=== PATIENT | female | born 2000 | race Hispanic/Latino ===

== ENCOUNTER 2023-10-23 23:03 | Emergency (ER) | payer SELFPAY ==
--- NOTE | ~2023-10-23 | US_ITS ---
Pelvic ultrasound. Clinical History: First trimester , vaginal bleeding Technique: Realtime transabdominal and transvaginal scanning of the pelvis was performed. Color flow Doppler and Doppler spectral analysis were performed. Findings: The uterus is anteverted. The endometrial stripe is thickened and heterogeneous, without i ntrauterine gestational sac. The right ovary measures 2.0 x 1.4 x 1.6 cm. No significant right ovarian or adnexal mass is seen. The left ovary measures 3.3 x 1.4 x 2.5 cm. No significant left ovarian or adnexal mass is seen. There is no evidence of free fluid in the cul de sac. Impression: Thickened, heterogeneous endometrial stripe suggests spontaneous . Technical limitations in i maging limit evaluation for retained products of conception. No intrauterine gestational sac. Early n ormal or nonvisualized ectopic are felt to be much less likely, though not defini tively excluded. Correlate clinically. Continued follow-up with serial beta hCG recommended. Consider follow-up ultrasound as indicated. Reviewed, dictated and finalized at location . Impression: Thickened, heterogeneous endometrial stripe suggests spontaneous . Tech nical limitations in imaging limit evaluation for retained products of concepti on. No intrauterine gestational sac. Early normal or nonvisualized ec topic are felt to be much less likely, though not definitively exclud ed. Correlate clinically. Continued follow-up with serial beta hCG recommended. Consider follow-up ultrasound as indicated.
[2023-10-23 23:13] VITALS: BP 152/81; PULSE 96; RESP 16; TEMP 37.2; O2SAT 99
--- NOTE | 2023-10-23 23:29 | ED.FEMALEGU ---
HPI - Female Genitourinary General Chief complaint: Vaginal Bleeding <Maliha Torres PA-C - Last Filed: 10/24/23 02:00> Stated complaint: spotting&cramping, 2 months preg. roughly <Maliha Torres PA-C - Last Filed: 10/24/23 02:00> Time Seen by Provider: 10/23/23 23:20 <Maliha Torres PA-C - Last Filed: 10/24/23 02:00> History of Present Illness HPI Narrative: 22-year-old female, , presents with her cousin and grandmother at bedside for vaginal bleeding in . Patient's last menstrual period was 08/01/2023. She has had multiple positive at home tests. She believes she is approximately 2 months . States yesterday she began having some bleeding while working and is having to change her pad approximately every 3-4 hours. Today she started developing quarter-size clots and noticed some tissue on the toilet paper after wiping. She is reporting some suprapubic abdominal pain which she describes as a stabbing sensation. States that she has been once before which ended up in a miscarriage. She denies fever, dysuria, history of bleeding dyscrasias , vaginal discharge or concerns for STDs. she is not anticoagulated. She is scheduled tomorrow for her 1st ultrasound and to establish with an OBGYN. <Maliha Torres PA-C - Last Filed: 10/24/23 02:00> Related Data Allergies/Adverse reactions: Allergies Allergy/AdvReac Type Severity Reaction Status Date / Time No Known Allergies Allergy Unverified 03/18/17 10:32 <Maliha Torres PA-C - Last Filed: 10/24/23 02:00> Review of Systems Review of Systems: CONSTITUTIONAL: Denies fever, chills, or sweats. EYES: Denies visual changes, redness, or discharge. ENT: Denies rhinorrhea, congestion, sore throat, or otalgia. CARDIOVASCULAR: Denies chest pain, palpitations, or edema. RESPIRATORY: Denies cough or dyspnea. GASTROINTESTINAL: Denies abdominal pain, nausea, vomiting, or diarrhea. GENITOURINARY: see HPI SKIN: Denies rash or itching. MUSCULOSKELETAL: Denies back pain, joint pain, or myalgia. NEUROLOGIC: Denies headache, numbness, or weakness. PSYCHIATRIC: Denies anxiety or depression. <Maliha Torres PA-C - Last Filed: 10/24/23 02:00> Exam Narrative: GENERAL: Well-appearing, well-nourished, and in no acute distress. tearful HEAD: Normocephalic, atraumatic. EYES: PERRLA and EOMI. ENT: Nares clear, no rhinorrhea or epistaxis. Mucous membranes moist. NECK: Supple. CHEST: Clear to auscultation. No respiratory distress. HEART: Regular rate and rhythm. No murmur heard. Normal peripheral pulses. ABDOMEN: normoactive bowel sounds. Abdomen soft with tenderness in the suprapubic region. No rebound, guarding or rigidity. No CVA tenderness. : Pelvic exam chaperoned by Liseth Morin: Normal external genitalia, vaginal vault with moderate amount of blood, cervical os open passing blood and clots, 1 small clot pulled from cervix. No adnexal masses or tenderness. No hemorrhage EXTREMITIES: Normal range of motion. No edema. SKIN: Warm, dry, no rash. NEURO: No focal deficits. Alert and oriented x3 <Maliha Torres PA-C - Last Filed: 10/24/23 02:00> Course AIR SAMPLER/PA Physician Supervision For this patient encounter, I reviewed the AIR SAMPLER or PA documentation, treatment plan, and medical decision making and had [id number] time with this patient. I performed all aspects of the MDM as documented. <Janette Joseph MD - Last Filed: 10/24/23 03:50> Vital Signs Vital signs: Vital Signs Temperature 98.9 F 10/23/23 23:13 Pulse Rate 96 10/23/23 23:13 Respiratory Rate 16 10/23/23 23:13 Blood Pressure 152/81 H 10/23/23 23:13 Pulse Oximetry 99 10/23/23 23:13 Oxygen Delivery Room Air 10/23/23 23:13 Temperature 98.9 F 10/23/23 23:13 Pulse Rate 79 10/24/23 00:53 Respiratory Rate 16 10/24/23 00:53 Blood Pressure 118/95 H 10/24/23 00:53 Pulse Oximetry 99 10/24/23 00:53
[2023-10-24 00:07] LABS: Bacteria Urine Rare /hpf; Non Pathogenic Casts 0-2; RBC Urine >100 /hpf (0-2); Squamous Epithelial Cell Urine None Seen /hpf (Few)
[2023-10-24] MEDS: ACETAMINOPHEN 500 MG TABLET 1000 MG PO (00:09)
[2023-10-24] MEDS: SODIUM CHLORIDE 0.9% IV 1,000 ML 999 ML IV CONT (00:09)
[2023-10-24 00:11] LABS: Appearance Urine Turbid (Clear); Bilirubin Urine 1+ (Negative); Blood Urine 3+ (Negative); Color Urine Red (Yellow); Glucose Urine UA 3+ mg/dL (Negative); Ketones Urine Negative (Negative); Leukocyte Esterase Ur 2+ LEU/UL (Negative); Nitrate Urine Negative (Negative); Protein Urine 2+ mg/dL (Negative); Specific Grav Ur 1.021 (1.001-1.035); Urobilinogen Urine 0.2 mg/dL (<2.0)
[2023-10-24 00:12] LABS: Add Urine Microscopic? YES
[2023-10-24 00:37] LABS: Alanine Aminotransferase 22 U/L (6-35); Alkaline Phosphatase 155 U/L (38-126); Anion Gap 8 mmol/L (4-12); Aspartate Amino Transferase 20 U/L (14-36); Bilirubin,Total 0.3 mg/dL (0.2-1.3); Blood Urea Nitrogen 12 mg/dL (7-17); Calcium 9.2 mg/dL (8.4-10.2); Carbon Dioxide 26 mmol/L (22-30); Chloride 101 mmol/L (98-107); Estimated CRCL calculation 157 ml/min; Estimated Glomerular Filt Rate > 60; Glucose 228 mg/dL (65-110); Potassium 4.2 mmol/L (3.4-5.0); Sodium 135 mmol/L (137-145)
[2023-10-24 00:39] LABS: INR 0.9; Prothrombin Time 12.9 Seconds (11.1-14.7)
[2023-10-24 00:40] LABS: Partial Thromboplastin Time 27.9 Seconds (22.3-36.8)
[2023-10-24 00:45] LABS: Basophils Absolute Auto 0.1 K/mm3 (0.0-0.1); Basophils Percent Auto 0.4 % (0.2-1.2); Eosinophils Absolute Auto 0.3 K/mm3 (0-0.3); Eosinophils Percent Auto 2.1 % (0-4.4); Hematocrit 33.3 % (37.0-47.0); Hemoglobin 10.8 g/dL (12.0-15.0); Immature Granulocyte Absolute 0.05 K/mm3 (0.00-0.031); Immature Granulocyte Percent A 0.4 % (0-0.5); Lymphocytes Absolute Auto 4.18 K/mm3 (0.9-3.2); Lymphocytes Percent Auto 35.8 % (18.3-44.2); Mean Corpuscular HGB Conc 32.4 g/dl (32-36); Mean Corpuscular Hemoglobin 28.1 pg (26-34); Mean Corpuscular Volume 86.7 fl (80-100); Mean Platelet Volume 10.9 fl (7.4-10.4); Monocytes Absolute Auto 0.7 K/mm3 (0.1-0.6); Neutrophils Absolute Auto 6.4 K/mm3 (1.3-6.7); Neutrophils Percent Auto 55.3 % (45.5-73.1); Platelet Count Result 365 k/mm3 (150-375); Red Blood Count 3.84 M/mm3 (4.2-5.4); Red Cell Distribution Width 13.4 % (11.5-14.5); White Blood Count 11.7 K/mm3 (4.5-10.0)
[2023-10-24 00:53] VITALS: BP 118/95; PULSE 79; RESP 16; O2SAT 99
--- NOTE | 2023-10-24 02:45 | PC.NURSE ---
Pt called out professor of public administration light stating her IV was hurting. This RN went and checked and noticed IV was infiltrated. Dr. Joseph okayed to take IV out at this time.
== END 2023-10-24 04:03 | disposition home or self-care (01) ==
PROVIDERS: Physician Assistant; Emergency Provider Emergency Medicine
DX: O20.0 Threatened abortion (principal); Z3A.01 Less than 8 weeks gestation of pregnancy
CPT/HCPCS: 36415; 76801; 76817; 80053; 81001; 84702; 85025; 85610; 85730; 86850; 86900; 86901; 87086; 87088; 96360; 96361; 99284; A9270; J7030

== ENCOUNTER 2024-04-15 20:08 | Emergency (ER) | payer SELFPAY ==
[2024-04-15 20:11] VITALS: BP 153/90; PULSE 87; RESP 15; TEMP 36.7; O2SAT 99
--- NOTE | 2024-04-15 22:31 | ED.SKABFB ---
HPI - Skin/Abscess/Foreign Bdy General Chief complaint: Skin/Abscess/Foreign Body Stated complaint: boil or spider bite in groin area Time Seen by Provider: 04/15/24 21:07 Source: patient Mode of arrival: ambulatory Limitations: no limitations History of Present Illness HPI narrative: This is a 23 year old female that presents to the ER for a possible abscess. Reports this started one week ago. Reports redness and swelling to the left groin. Reports pain in the area. Denies fevers. Related Data Allergies Allergy/AdvReac Type Severity Reaction Status Date / Time No Known Allergies Allergy Unverified 03/18/17 10:32 Review of Systems Review of Systems: CONSTITUTIONAL: Denies fever SKIN: Reports redness and swelling All systems reviewed & are unremarkable except as noted in HPI and below PMFSH Past Medical History Medical History (Updated 04/15/24 @ 23:31 by Jacinta Arzate PA-C) No active medical problems Social History Social History (Updated 04/15/24 @ 22:34 by Jacinta Arzate PA-C) Substance use: never Exam Narrative: GENERAL: Well-appearing, well-nourished, and in no acute distress. HEAD: Normocephalic, atraumatic. EYES: EOMI. EXTREMITIES: Normal range of motion. Left inner thigh with an area of erythema with central induration SKIN: Warm, dry, no rash. NEURO: No focal deficits. Alert and oriented x3. PSYCH: Normal mood and affect Course Course Emergency Course: Patient educated on further wound care Vital Signs Vital signs: Vital Signs Temperature 98.1 F 04/15/24 20:11 Pulse Rate 87 04/15/24 20:11 Respiratory Rate 15 04/15/24 20:11 Blood Pressure 153/90 H 04/15/24 20:11 Pulse Oximetry 99 04/15/24 20:11 Oxygen Delivery Room Air 04/15/24 20:11 Temperature 98.1 F 04/15/24 20:11 Pulse Rate 87 04/15/24 20:11 Respiratory Rate 15 04/15/24 20:11 Blood Pressure 153/90 H 04/15/24 20:11 Pulse Oximetry 99 04/15/24 20:11 Oxygen Delivery Room Air 04/15/24 20:11 Procedures Abscess I/D other: Date of Incision: 04/15/24 Time of Incision: 23:29 Side (if applicable): left Local Anesthetic: lidocaine 1% and with epi Amount of anesthesia used (mL): 2 Technique: incised with #11 blade Irrigation: Yes Packing used?: iodoform I&D Results: Pus and Blood MDM - Skin/Abscess/Foreign Bdy MDM Narrative Medical decision making narrative: Patient presents the emergency department for an abscess to the left to labia majora. She is afebrile and nontoxic appearing. This was successfully drained. Wound culture sent. Patient will be started on oral antibiotics. She was instructed on further wound care. She is to follow up with primary provider. She was given warnings to return to the ER Differential Diagnosis Differential diagnosis: Likely abscess of skin or subcutaneous tissue and cellulitis Critical Care Time Critical Care Time Critical Care Time: No Discharge Plan Discharge Clinical Impression: Abscess of skin or subcutaneous tissue Qualifiers: Site of cutaneous abscess: other site Qualified Code(s): L02.818 - Cutaneous abscess of other sites Patient Disposition: Home, Self-Care Condition: Stable Instructions: Antibiotic Form, Abscess (ED) Additional Instructions: Return if symptoms worsen or concerns: any increase in redness, swelling, pain or fever over 101 Take antibiotics as directed. Clean wound with mild soapy water. Apply antibiotic ointment and clean dressing at least three times daily. Warm compresses 3 times a day for 20 minutes each Follow up with primary care in the next 2-3 days for re-evaluation and packing removal Prescriptions: New sulfamethoxazole-trimethoprim 800-160 mg tablet 1 tablet PO Q12H 7 Days Qty: 14 0RF Follow-up/Referrals: UNKNOWN,DOCTOR [Primary Care Provider] -
[2024-04-15 23:38] LABS: BEDSIDEPREGUCG Negative (Negative)
[2024-04-15 23:48] VITALS: BP 138/81; PULSE 98; RESP 18; TEMP 36.3; O2SAT 99
== END 2024-04-15 23:49 | disposition home or self-care (01) ==
PROVIDERS: Emergency Provider Physician Assistant
DX: N76.4 Abscess of vulva (principal)
CPT/HCPCS: 10061; 56405; 81025; 87070; 87075; 87181; 87205; 99283

== ENCOUNTER 2024-07-21 12:47 | Emergency (ER) | payer MEDICAID, SELFPAY ==
--- NOTE | ~2024-07-21 | US_ITS ---
EXAMINATION: US OB <=14 wk fetus w TV INDICATION: bleeding, TECHNIQUE: Sonography of the pelvis was performed by transabdominal and transvaginal techniques. COMPARISON: None. RESULT: Uterus: 6.8 x 4.6 x 5.4 cm. Anteverted. Homogenous myometrium. Intrauterine gestational sac: Single present. Mean Sac Diameter: 1.03 cm, corresponding gestational age 5 week 5 days. Yolk sac: 0.3 cm . Embryo: A candidate pole is identified. Hawthorne rump length: 0.17 cm, which is out of range for gestational age calculation. Subgestational hematoma: Heterogeneous echogenic collection inferior to the gestational sac, measuri ng 1.7 x 1.5 cm. . Right ovary: 1.8 x 0.7 x 1.5 cm. Vascular flow is present. No adnexal mass. Left ovary: 1.8 x 1.3 x 1.1 cm. Vascular flow is present. No adnexal mass. Pelvis free fluid: None. IMPRESSION: Intrauterine of uncertain viability. Intrauterine gestational sac with a possible alicia e identified without heart motion. Recommend close clinical and sonographic follow-up. Moderate subgestational hematoma. Estimated Gestational Age: 5 weeks, 5 days by mean gestational sac diameter. NICOLE by ultrasound 2024. Reviewed, dictated and finalized at location [facility]. IMPRESSION: Intrauterine of uncertain viability. Intrauterine gestational sac wit h a possible pole identified without heart motion. Recommend close clinic al and sonographic follow-up. Moderate subgestational hematoma. Estimated Gestational Age: 5 weeks, 5 days by mean gestational sac diameter. E DD by ultrasound 03/18/2025.
[2024-07-21 13:01] VITALS: BP 150/78; PULSE 78; RESP 18; TEMP 36.8; O2SAT 98
--- OUTSIDE RECORDS SUMMARY | 2024-07-21 13:58 | XMS_ITS | Data Portability ---
Author Organization [facility] [place] Address [address] [place] [address] [place] [address] Assessment No assessment recorded. Plan of Treatment Reminders Order Date Submit Date Provider Last Modified By Organization Details Last Modified Time Details Appointments None recorded. Lab None recorded. Referral None recorded. Procedures None recorded. Surgeries None recorded. Imaging US, obstetric, transvagina l 2023 024 [email or web address] [place], [address], [place], [address], 21:36:03 Medication Orders None recorded. Patient TargetsNo targets recorded. Patient InstructionsNo instructions recorded. Reason for Referral None Reported. Results Created Date Observation Date Name Description Value Unit Range Abnormal Flag Note LastModifiedBy Organization Detail LastModifiedTime 10/24/19 24 10/24/2023 US, obste tric, trans vagin al No observ ation record ed. [email or web address] [place] [address], [place], [address], 10/24/2023 21:03:03 10/24/19 24 10/24/2023 US, obste tric, trans vagin al No observ ation record ed. [email or web address] [place] [address], [place], [address], 10/24/2023 21:03:04 Result Notes None recorded. Procedures Surgical History Date Name Laterality Status Provider Name and Address Organization Details Recorded Time 05/13/2019 Date of Last Pap Smear completed [facility] 10/24/2023 17:09:49 Imaging Results Imaging Date Name Status LastModified by Organization Details LastModified Time 10/24/2023 US, obstetric, transvaginal completed [email or web address] [place] [address], [place], [address], 10/24/2023 21:03:03 10/24/2023 US, obstetric, transvaginal completed [email or web address], [place], [address], 10/24/2023 21:03:04 Procedure Notes None recorded. Medical Equipment None Reported. Allergies No known drug allergies Medications Name Sig Start Date Stop Date Status Note LastModified by Organization Details LastModified Time nitrofurantoin monohydrate/macr ocrystals 100 mg capsule 10/23 completed Not Available Not Available Not Available Vitals Date Recorded Body height Body mass index (BMI) Body weight Systolic blood pressure Diastolic blood pressure Provider Name and Address Organization Details Last Updated DateTime 10/24/2023 152.4 cm 44.2 kg/m2 504031.5 9 g 130 mm[Hg] 82 mm[Hg] [facility] 17:08:54 Social History Question Answer Notes LastModified by Organizat ion Details LastModified Time In The 14 Days Before Symptom Onset, Have You Had Close Contact With A Laboratory-confirmed COVID-19 While That Case Was Ill? No Information not available 10/24/2023 In The 14 Days Before Symptom Onset, Have You Had Close Contact With A Person Who Is Under Investigation For COVID-19 While That Person Was Ill? No Information not available 10/24/2023 Have You Been To An Area Known To Be High Risk For COVID-19? No Information not available 10/24/2023 Sex: Unknown Functional Status None recorded. Mental Status None recorded. Family History Relationship Description Onset Age of this Age Resolved Age Notes LastModified by Organization Details LastModified Time Mother Diabetes mellitus [email or web address] Not available 2023 17:10:47 Unspecified Relation Malignant tumor of breast Great Aunt on mother side [email or web address] Not available 10/24/2023 17:11:07 Medical History Condition Response Allergies (Food, seasonal, environmental ) N Other N Breast Cancer N Drug/Latex Allergies/Reactions N Blood Transfusion N Dermatologic Disorders N Lung Disease N Defects or Inherited Disease N Breast Problem N Gestational Diabetes N Hematologic disorders N Anesthesia Complications N History of STI N Deep Vein Thrombosis N Polycystic ovary syndrome N Anxiety Disorder N Autoimmune disease N Arthritis N Infertility N Polyps N Acid Reflux (GERD) N History of abnormal pap N Cancer N Stroke N Varicosities N Neurologic/Epilepsy N Endometriosis N High Cholesterol N Headaches N Fibromyalgia N Kidney Disease N Heart Problems N Kidney or Bladder Problems N Thyroid Problems N GI Problems N Eating Disorder N Anemia N Art (IVF or FET) N Psychiatric Illness N Ovarian Cancer N Diabetes N Pulmonary (TB, Asthma) N Hepatitis/Liver Disease N No Past Medical History N Eczema N Urinary Tract Infection N Abuse/Domestic Violence N Asthma N Trauma/Violence N Depression/ depression N Heart Disease N Pre-Eclampsia N Hypertension N Osteoporosis N Thrombophilias N Gynecological History Statement/Question Response STIs/STDs N HPV Vaccine Y Date of Last Pap Smear 05/13/2019 Sexual Problems? N Date of LMP 08/01/2023 Sexually Active? N Obstetrics History GPAL:G 0 P 0 0 0 0 Past Encounters Encounter ID Performer Location Encounter Start Date Encounter Closed Date Diagnosis/Indication Diagnosis SNOMED-CT Code Diagnosis ICD10 Code Diagnosis Note [id number] Rose Almeida [place] [address] [address] 10/24/2023 15:56:22 10/24/2023 17:01:01 Threatened miscarriage 72687326 O20.0 Z3A.01 [id number] JV GRIDER MD [place] [address] [address] 10/24/2023 16:14:45 10/29/2023 06:13:38 Complete miscarriage 985557076 O03.9 - unsure LMP, had positive UPT 09/23- reports heavy bleeding with clots last night, was at [place] ER for evaluation - hCG ~8000, empty uterus with no evidence of ectopic in ER on US- US today confirms no IUP, no evidence of ectopic, would expect to see IUP if present given hCG last night- c/w miscarriag e, appears in process as patient reports clip and hanger attacher bleeding today- bleeding precaution s discussed- will trend hCG to negative Health Concerns Section Related Observation LastModified by Organization Detai ls LastModified Time None Recorded Concern Status LastModified by Organization Details LastModified Time None Recorded Advance Directives Directive None Recorded Payers Encounter Date Sequence Insurance Name Policy Number Policy Rios Covered Member ID Rios Member ID Guarantor Name 10/24/2023 1 [facility] ON OR AFTER 11/10/20 (MEDICAID REPLACEMENT - HMO) Denise Chaz cristobal [id number] Denise Chaz jain 10/24/2023 1 [facility] - DOS ON OR AFTER 20 (MEDICAID REPLACEMENT - HMO) Denise Ware cristobal [id number] Denise Chaz jain Notes Date Note Type Note Provider Name and Address Organization Details Recorded Time 10/24/2023 text/html Patient presents for ultrasound follow up. Unsure LMP. She was seen in the ER yesterday for heavy vaginal bleeding and passing clots and tissue. hCG at that time was ~8000. Labs otherwise unremarkable. Pelvic US demonstrated no IUP or evidence of ectopic . Today she reports bleeding has improved. No abdominal pain. No nausea ro vomiting. No fevers or chills. JV GRIDER MD [address], [place], [address], [facility] 10/28/2023 21:51:55 OBGyn Episode No OBEpisode recorded.
--- OUTSIDE RECORDS SUMMARY | 2024-07-21 13:59 | XMS_ITS | Referral Summary ---
Author Organization [facility] Address [address] [place] [address] Care Team Providers Care Coach Operator Name Role Phone No, Physician Primary Care Provider Allergies No known active allergies Medications nitrofurantoin monohydrate (MACROBID) 100 mg capsule Take 1 capsule (100 mg total) by mouth 2 (two) times a day 10 capsule 09/28/2023 Active Social History Tobacco Use Types Packs/Day Years Used Date Smoking Tobacco: Never Assessed Personal Safety Answer Date Recorded Have you ever been in or are you currently in a harmful physical or emotional relationship or is someone making you feel afraid or unsafe? Denies 10/23/2023 Comments Unknown Sex and Gender Information Value Date Recorded Sex Assigned at Not on file Legal Sex Female 7:33 PM CDT Gender Identity Not on file Sexual Orientation Not on file Last Filed Vital Signs Vital Sign Reading Time Taken Comments Blood Pressure 152/111 10/23/2023 10:34 PM CDT Pulse 116 10/23/2023 10:34 PM CDT Temperature 37 C (98.6 F) 10/23/2023 10:34 PM CDT Respiratory Rate 20 10/23/2023 10:34 PM CDT Oxygen Saturation 98% 10/23/2023 10:34 PM CDT Inhaled Oxygen Concentration - - Weight 98.6 kg (217 lb 6 oz) 09/28/2023 7:43 PM CDT Height 152.4 cm (5') 09/28/2023 7:43 PM CDT Body Mass Index 42.45 09/28/2023 7:43 PM CDT Plan of Treatment Not on file Insurance [address] Care Teams Coach Operator Relationship Specialty Start Date End Date No, Physician PCP - General 09/28/23
--- OUTSIDE RECORDS SUMMARY | 2024-07-21 13:59 | XMS_ITS | Clinical Summary ---
Author Organization [facility] Address [address] [place] [address] Care Team Providers Care Bumper Operator Name Role Phone No, Physician Primary Care Provider [phone] Allergies No known active allergies Medications nitrofurantoin [...] 09/28/2023 7:43 PM CDT Plan of Treatment Health Maintenance Due Date Last Done Comments Cervical Cancer Screening 1999 Depression Screening 1999 Hepatitis C Screening 1999 DTaP/Tdap/Td Vaccine (1 - Tdap) 12/25/2010 Varicella Vaccines (1 of 2 - 13+ 2-dose series) 12/25/2012 HPV Vaccines (1 - 3-dose series) 12/25/2014 Hepatitis B Screening 12/25/2017 Regular Well Visit/Exam 18-64 12/25/2017 Influenza Vaccine (#1) 2024 Pneumococcal vaccine <65 Aged Out No longer eligible based on patient's age to complete this topic Insurance Care Teams Bumper Operator Relationship Specialty Start Date End Date No, Physician PCP - General 09/28/23
--- NOTE | 2024-07-21 14:09 | ED_ITS ---
HPI - General Chief complaint: Vaginal Bleeding <Jacinta Arzate PA-C - Last Filed: 07/24/24 11:15> Stated complaint: vaginal bleeding, LMP 05/24/24 <Jacinta Arzate PA-C - Last Filed: 07/24/24 11:15> Time Seen by Provider: 07/21/24 14:09 <Jacinta Arzate PA-C - Last Filed: 07/24/24 11:15> Focused HPI: This is a 23 year old female that presents to the ER for vaginal bleeding. Ongoing since last night. Reports she is currently . Her LMP was sometime in May. She has not seen her OB yet. She has not had an US yet. GENERAL: Well-appearing, well-nourished, and in no acute distress. HEAD: Normocephalic, atraumatic. CHEST: Clear to auscultation. ?No respiratory distress. HEART: Regular rate and rhythm.? NEURO: ?Alert and oriented x3. Patient screened in triage and initial orders placed.? ?Additional care and disposition to be based upon?diagnostic testing and treatment. <Jacinta Arzate PA-C - Last Filed: 07/24/24 11:15> Source: patient <DAPHNIE Parish Last Filed: 07/22/24 02:08> Mode of arrival: ambulatory <Jermaine Glaser PA-C - Last Filed: 07/22/24 02:08> Limitations: no limitations <DAPHNIE Parish Last Filed: 07/22/24 02:08> History of Present Illness HPI Narrative: Agree with MSE note above. Denies abdominal pain, lightheadedness, nausea, vomiting, back pain, urinary symptoms. <DAPHNIE Parish Last Filed: 07/22/24 02:08> Related Data Allergies/Adverse reactions: Allergies Allergy/AdvReac Type Severity Reaction Status Date / Time No Known Allergies Allergy Verified 07/21/24 13:08 <DAPHNIE Barahona Last Filed: 07/24/24 11:15> Review of Systems 2 Review of Systems: All systems as dictated in HPI <Jermaine Glaser PA-C - Last Filed: 07/22/24 02:08> COUNTS INCLUDE 234 BEDS AT THE [facility] Past Medical History Medical History: Medical History No active medical problems <Jacinta Arzate PA-C - Last Filed: 07/24/24 11:15> Social History Social History: Social History Substance use: never <Jacinta Arzate PA-C - Last Filed: 07/24/24 11:15> Exam 2 Narrative: GENERAL: Well-appearing, well-nourished, and in no acute distress. HEAD: Normocephalic, atraumatic. EYES: PERRLA and EOMI. ENT: Nares clear, no rhinorrhea or epistaxis. Mucous membranes moist. Oropharynx without tonsillar hypertrophy exudate or other lesions. NECK: Supple. No adenopathy or masses. CHEST: No respiratory distress. Clear to auscultation. No wheezes rales or rhonchi HEART: Regular rate and rhythm. No murmur heard. Normal peripheral pulses. ABDOMEN: Soft, nontender, nondistended, normal active bowel sounds. MSK: Normal range of motion. No edema. SKIN: Warm, dry, no rash. NEURO: Alert and oriented x4. No focal deficits. PSYCH: Normal mood and affect. <Jermaine Glaser PA-C - Last Filed: 07/22/24 02:08> Course Vital Signs Vital signs: Vital Signs Temperature 98.2 F 07/21/24 13:01 Pulse Rate 78 07/21/24 13:01 Respiratory Rate 18 07/21/24 13:01 Blood Pressure 150/78 H 07/21/24 13:01 Pulse Oximetry 98 07/21/24 13:01 Oxygen Delivery Room Air 07/21/24 13:01 Temperature 98.2 F 07/21/24 13:01 Pulse Rate 74 07/21/24 19:53 Respiratory Rate 16 07/21/24 19:53 Blood Pressure 136/88 07/21/24 19:53 Pulse Oximetry 100 07/21/24 19:53 Oxygen Delivery Room Air 07/21/24 13:01 <Jacinta Arzate PA-C - Last Filed: 07/24/24 11:15> Vital Signs Temperature 98.2 F 07/21/24 13:01 Pulse Rate 78 07/21/24 13:01 Respiratory Rate 18 07/21/24 13:01 Blood Pressure 150/78 H 07/21/24 13:01 Pulse Oximetry 98 07/21/24 13:01 Oxygen Delivery Room Air 07/21/24 13:01 Temperature 98.2 F 07/21/24 13:01 Pulse Rate 74 07/21/24 19:53 Respiratory Rate 16 07/21/24 19:53 Blood Pressure 136/88 07/21/24 19:53 Pulse Oximetry 100 07/21/24 19:53 Oxygen Delivery Room Air 07/21/24 13:01 <Jermaine Glaser PA-C - Last Filed: 07/22/24 02:08> MDM - OB/Uterine Contractions MDM Narrative Medical decision making narrative: This is a 23-year-old female who presents to the ED for chief complaint of vaginal bleeding with recent positive test. Vitals are normal. Exam is remarkable for the above. She does not exhibit any systemic signs or abdominal pain today. Lab work shows beta hCG at 9352. No indication for RhoGAM today. CBC unremarkable. Obstetrical ultrasound: IMPRESSION: Intrauterine of uncertain viability. Intrauterine gestational sac with a possible pole identified without heart motion. Recommend close clinical and sonographic follow-up. Moderate subgestational hematoma. Estimated Gestational Age: 5 weeks, 5 days by mean gestational sac diameter. NICOLE by ultrasound 03/18/2025. Presentation most likely consistent with threatened . I discussed these results with the patient. Her questions have been answered. She has an OB to follow up with this week. Patient will be discharged in stable condition. Supportive measures discussed and return precautions given. Patient is understanding and agreeable with plan for discharge with OB follow-up. <Jermaine Glaser PA-C - Last Filed: 07/22/24 02:08> Lab Data Result diagrams: 07/21/24 18:39 07/21/24 18:39 <Jacinta Arzate PA-C - Last Filed: 07/24/24 11:15> Labs: Lab Results 07/21/24 Range/Units 18:39 WBC 10.1 H (4.5-10.0) K/mm3 RBC 4.42 (4.2-5.4) M/mm3 Hgb 12.0 (12.0-15.0) g/dL Hct 37.5 (37.0-47.0) % MCV 84.8 (80-100) fl MCH 27.1 (26-34) pg MCHC 32.0 (32-36) g/dl RDW 13.2 (11.5-14.5) % Plt Count 374 (150-375) k/mm3 MPV 10.8 H (7.4-10.4) fl Immature Gran % (Auto) 0.2 (0-0.5) % Neut % (Auto) 48.9 (45.5-73.1) % Lymph % (Auto) 43.0 (18.3-44.2) % Yell % (Auto) 5.2 (2.6-8.5) % Eos % (Auto) 2.2 (0-4.4) % Baso % (Auto) 0.5 (0.2-1.2) % Lymph # (Auto) 4.32 H (0.9-3.2) K/mm3 Yell # (Auto) 0.5 (0.1-0.6) K/mm3 Eos # (Auto) 0.2 (0-0.3) K/mm3 Baso # (Auto) 0.1 (0.0-0.1) K/mm3 Abs Immat Gran (auto) 0.02 (0.00-0.031) K/mm3 Absolute Neuts (auto) 4.9 (1.3-6.7) K/mm3 Absolute Nucleated RBC 0.000 (0.0-0.012) K/mm3 Nucleated RBC % 0.0 (0.0-0.2) % PT 13.1 (11.1-14.7) Seconds INR 1.0 APTT 26.5 (22.3-36.8) Seconds Sodium 137 (137-145) mmol/L Potassium 3.6 (3.4-5.0) mmol/L Chloride 101 (98-107) mmol/L Carbon Dioxide 23 (22-30) mmol/L Anion Gap 13 H (4-12) mmol/L BUN 6 L D (7-17) mg/dL Creatinine 0.43 L (0.7-1.0) mg/dL Estim Creat Clear Calc 178 ml/min Estimated GFR > 60 (59 - ) Glucose 232 H (65-110) mg/dL Calcium 9.0 (8.4-10.2) mg/dL Total Bilirubin 0.3 (0.2-1.3) mg/dL AST 29 (14-36) U/L ALT 30 (6-35) U/L Alkaline Phosphatase 134 H (38-126) U/L Total Protein 8.0 (6.3-8.2) g/dL Albumin 4.3 (3.5-5.1) g/dL Beta HCG, Quant 9352.10 mIU/ML Blood Type O Positive Antibody Screen Negative Screen Not Reportable Baby's Blood Type Not Reportable Baby's ROBERT Not Reportable Doses of RhIg Required 0 <Jacinta Arzate PA-C - Last Filed: 07/24/24 11:15> Lab Results 07/21/24 Range/Units 18:39 WBC 10.1 H (4.5-10.0) K/mm3 RBC 4.42 (4.2-5.4) M/mm3 Hgb 12.0 (12.0-15.0) g/dL Hct 37.5 (37.0-47.0) % MCV 84.8 (80-100) fl MCH 27.1 (26-34) pg MCHC 32.0 (32-36) g/dl RDW 13.2 (11.5-14.5) % Plt Count 374 (150-375) k/mm3 MPV 10.8 H (7.4-10.4) fl Immature Gran % (Auto) 0.2 (0-0.5) % Neut % (Auto) 48.9 (45.5-73.1) % Lymph % (Auto) 43.0 (18.3-44.2) % Yell % (Auto) 5.2 (2.6-8.5) % Eos % (Auto) 2.2 (0-4.4) % Baso % (Auto) 0.5 (0.2-1.2) % Lymph # (Auto) 4.32 H (0.9-3.2) K/mm3 Yell # (Auto) 0.5 (0.1-0.6) K/mm3 Eos # (Auto) 0.2 (0-0.3) K/mm3 Baso # (Auto) 0.1 (0.0-0.1) K/mm3 Abs Immat Gran (auto) 0.02 (0.00-0.031) K/mm3 Absolute Neuts (auto) 4.9 (1.3-6.7) K/mm3 Absolute Nucleated RBC 0.000 (0.0-0.012) K/mm3 Nucleated RBC % 0.0 (0.0-0.2) % PT 13.1 (11.1-14.7) Seconds INR 1.0 APTT 26.5 (22.3-36.8) Seconds Sodium 137 (137-145) mmol/L Potassium 3.6 (3.4-5.0) mmol/L Chloride 101 (98-107) mmol/L Carbon Dioxide 23 (22-30) mmol/L Anion Gap 13 H (4-12) mmol/L BUN 6 L D (7-17) mg/dL Creatinine 0.43 L (0.7-1.0) mg/dL Estim Creat Clear Calc 178 ml/min Estimated GFR > 60 (59 - ) Glucose 232 H (65-110) mg/dL Calcium 9.0 (8.4-10.2) mg/dL Total Bilirubin 0.3 (0.2-1.3) mg/dL AST 29 (14-36) U/L ALT 30 (6-35) U/L Alkaline Phosphatase 134 H (38-126) U/L Total Protein 8.0 (6.3-8.2) g/dL Albumin 4.3 (3.5-5.1) g/dL Beta HCG, Quant 9352.10 mIU/ML Blood Type O Positive Antibody Screen Negative Screen Not Reportable Baby's Blood Type Not Reportable Baby's ROBERT Not Reportable Doses of RhIg Required 0 <Jermaine Glaser PA-C - Last Filed: 07/22/24 02:08> Imaging Data Radiologist's impression: ITS Impressions Obstetrics Ultrasound 07/21/24 15:43 IMPRESSION: Intrauterine of uncertain viability. Intrauterine gestational sac with a possible pole identified without heart motion. Recommend close clinical and sonographic follow-up. Moderate subgestational hematoma. Estimated Gestational Age: 5 weeks, 5 days by mean gestational sac diameter. NICOLE by ultrasound 03/18/2025. <Jacinta Arzate PA-C - Last Filed: 07/24/24 11:15> Critical Care Time Critical Care Time Critical Care Time: No <DAPHNIE Barahona Last Filed: 07/24/24 11:15> Discharge Plan Discharge Clinical Impression: Miscarriage, threatened, early <Jacinta Arzate PA-C - Last Filed: 07/24/24 11:15> Patient Disposition: Home, Self-Care <Jacinta Arzate PA-C - Last Filed: 07/24/24 11:15> Condition: Stable <DAPHNIE Barahona Last Filed: 07/24/24 11:15> Instructions: Antibiotic Form, Miscarriage (ED) <DAPHNIE Barahona Last Filed: 07/24/24 11:15> Additional Instructions: Your exam today is concerning for possible miscarriage. Please follow-up tomorrow with your OB for repeat evaluation. If you have any new or worsening symptoms please return to the ER for further evaluation. <Jacinta Arzate PA-C - Last Filed: 07/24/24 11:15> Patient Language: [place] <Jacinta Arzate PA-C - Last Filed: 07/24/24 11:15> Prescriptions: No Action sulfamethoxazole-trimethoprim 800-160 mg tablet 1 tablet PO Q12H 7 Days Qty: 14 0RF <DAPHNIE Barahona Last Filed: 07/24/24 11:15> Follow-up/Referrals: UNKNOWN,DOCTOR [Primary Care Provider] - <DAPHNIE Barahona Last Filed: 07/24/24 11:15> Stand Alone Forms: Work/School Release IP <DAPHNIE Barahona Last Filed: 07/24/24 11:15> Time of Disposition: 19:44 <DAPHNIE Barahona Last Filed: 07/24/24 11:15> 19:44 <DAPHNIE Parish Last Filed: 07/22/24 02:08>
--- NOTE | 2024-07-21 15:57 | PC.NURSE ---
Unable to obtain labs after multiple attempts by 2 RN's.
[2024-07-21 18:48] LABS: Basophils Absolute Auto 0.1 K/mm3 (0.0-0.1); Basophils Percent Auto 0.5 % (0.2-1.2); Eosinophils Absolute Auto 0.2 K/mm3 (0-0.3); Eosinophils Percent Auto 2.2 % (0-4.4); Hematocrit 37.5 % (37.0-47.0); Immature Granulocyte Absolute 0.02 K/mm3 (0.00-0.031); Immature Granulocyte Percent A 0.2 % (0-0.5); Lymphocytes Absolute Auto 4.32 K/mm3 (0.9-3.2); Mean Corpuscular Hemoglobin 27.1 pg (26-34); Mean Corpuscular Volume 84.8 fl (80-100); Mean Platelet Volume 10.8 fl (7.4-10.4); Monocytes Absolute Auto 0.5 K/mm3 (0.1-0.6); Monocytes Percent Auto 5.2 % (2.6-8.5); Neutrophils Absolute Auto 4.9 K/mm3 (1.3-6.7); Neutrophils Percent Auto 48.9 % (45.5-73.1); Platelet Count Result 374 k/mm3 (150-375); Red Blood Count 4.42 M/mm3 (4.2-5.4); Red Cell Distribution Width 13.2 % (11.5-14.5); White Blood Count 10.1 K/mm3 (4.5-10.0)
[2024-07-21 18:53] VITALS: BP 139/86; PULSE 77; RESP 16; O2SAT 100
[2024-07-21 18:58] LABS: Alanine Aminotransferase 30 U/L (6-35); Albumin Level 4.3 g/dL (3.5-5.1); Alkaline Phosphatase 134 U/L (38-126); Anion Gap 13 mmol/L (4-12); Aspartate Amino Transferase 29 U/L (14-36); Bilirubin,Total 0.3 mg/dL (0.2-1.3); Blood Urea Nitrogen 6 mg/dL (7-17); Carbon Dioxide 23 mmol/L (22-30); Chloride 101 mmol/L (98-107); Estimated CRCL calculation 178 ml/min; Estimated Glomerular Filt Rate > 60; Glucose 232 mg/dL (65-110); Potassium 3.6 mmol/L (3.4-5.0); Sodium 137 mmol/L (137-145)
--- OUTSIDE RECORDS SUMMARY | 2024-07-21 18:58 | XMS_ITS | Clinical Summary ---
Author Organization [facility] Address [address] [place] [id number] Care Team Providers Care Route Salesman And Driver Name Role Phone No, Physician Primary Care Provider [phone] Allergies No known active allergies Medications nitrofurantoin [...] to complete this topic Insurance Care Teams Route Salesman And Driver Relationship Specialty Start Date End Date No, Physician PCP - General 09/28/23
--- OUTSIDE RECORDS SUMMARY | 2024-07-21 18:58 | XMS_ITS | Referral Summary ---
Author Organization [facility] Address [address] [place] [id number] Care Team Providers Care Safety Companion Name Role Phone No, Physician Primary Care Provider [phone] Allergies No known active allergies Medications nitrofurantoin [...] Plan of Treatment Not on file Insurance [address] Care Teams Safety Companion Relationship Specialty Start Date End Date No, Physician PCP - General 09/28/23
[2024-07-21 19:24] LABS: Prothrombin Time 13.1 Seconds (11.1-14.7)
[2024-07-21 19:25] LABS: Partial Thromboplastin Time 26.5 Seconds (22.3-36.8)
[2024-07-21 19:53] VITALS: BP 136/88; PULSE 74; RESP 16; O2SAT 100
== END 2024-07-21 19:55 | disposition home or self-care (01) ==
PROVIDERS: Physician Assistant; Emergency Provider Physician Assistant
DX: O20.0 Threatened abortion (principal); Z3A.01 Less than 8 weeks gestation of pregnancy
CPT/HCPCS: 36415; 76801; 76817; 80053; 84702; 85025; 85461; 85610; 85730; 86850; 86900; 86901; 99284

== ENCOUNTER 2024-07-22 10:13 | Emergency (ER) | payer SELFPAY ==
[2024-07-22 10:45] VITALS: BP 136/91; PULSE 83; RESP 20; TEMP 36.1; O2SAT 100
--- OUTSIDE RECORDS SUMMARY | 2024-07-22 11:28 | XMS_ITS | Referral Summary ---
Author Organization [facility] Address [address] [place] [phone] Care Team Providers Care Battalion Chief Name Role Phone No, Physician Primary Care Provider [phone] Allergies No known active allergies Medications nitrofurantoin [...] Plan of Treatment Not on file Insurance [address] Care Teams Battalion Chief Relationship Specialty Start Date End Date No, Physician PCP - General 09/28/23
--- OUTSIDE RECORDS SUMMARY | 2024-07-22 11:28 | XMS_ITS | Clinical Summary ---
Author Organization [facility] Address [address] [place] [id number] Care Team Providers Care Pbx Repairer Name Role Phone No, Physician Primary Care Provider [phone] Allergies No known active allergies Medications nitrofurantoin [...] to complete this topic Insurance Care Teams Pbx Repairer Relationship Specialty Start Date End Date No, Physician PCP - General 09/28/23
[2024-07-22 11:59] LABS: Basophils Absolute Auto 0.1 K/mm3 (0.0-0.1); Basophils Percent Auto 0.6 % (0.2-1.2); Eosinophils Absolute Auto 0.2 K/mm3 (0-0.3); Eosinophils Percent Auto 1.9 % (0-4.4); Hematocrit 37.3 % (37.0-47.0); Hemoglobin 11.6 g/dL (12.0-15.0); Immature Granulocyte Absolute 0.03 K/mm3 (0.00-0.031); Immature Granulocyte Percent A 0.3 % (0-0.5); Lymphocytes Absolute Auto 2.98 K/mm3 (0.9-3.2); Lymphocytes Percent Auto 33.1 % (18.3-44.2); Mean Corpuscular HGB Conc 31.1 g/dl (32-36); Mean Corpuscular Hemoglobin 26.9 pg (26-34); Mean Corpuscular Volume 86.5 fl (80-100); Mean Platelet Volume 10.9 fl (7.4-10.4); Monocytes Absolute Auto 0.5 K/mm3 (0.1-0.6); Monocytes Percent Auto 5.7 % (2.6-8.5); Neutrophils Absolute Auto 5.3 K/mm3 (1.3-6.7); Neutrophils Percent Auto 58.4 % (45.5-73.1); Platelet Count Result 342 k/mm3 (150-375); Red Blood Count 4.31 M/mm3 (4.2-5.4); Red Cell Distribution Width 13.2 % (11.5-14.5)
--- NOTE | 2024-07-22 12:03 | ED_ITS ---
HPI - General Chief complaint: Vaginal Bleeding Stated complaint: vag bleed Time Seen by Provider: 07/22/24 11:04 Source: patient Mode of arrival: ambulatory Limitations: no limitations History of Present Illness HPI Narrative: Patient is a 23-year-old female who presents the ED with report of vaginal bleeding. Patient is currently around 5 weeks gestation. , hx of previous miscarriage. LNMP 05/24/2024. Patient began having vaginal bleeding 2 days ago. She was seen in the ED here yesterday and ultrasound showed a 5 week gestation, intrauterine gestational sac but without pole or cardiac activity. Patient states she began having heavier bleeding today. Reports she is passing clots. She has some lower abdominal cramping. Is scheduled to follow-up with OBGYN with [facility] on 08/03. Related Data Allergies Allergy/AdvReac Type Severity Reaction Status Date / Time No Known Allergies Allergy Verified 07/21/24 13:08 Review of Systems 2 Review of Systems: All systems reviewed & are unremarkable except as noted in HPI. All systems reviewed & are unremarkable except as noted in HPI and below PMFSH Past Medical History Medical History No active medical problems Social History Social History Substance use: never Exam 2 Narrative: GENERAL: Well appearing, obese with BMI of 43.1, non-toxic, in no acute distress. HEAD: Normocephalic, atraumatic. RESPIRATORY: Airway patent, respirations nonlabored. CARDIOVASCULAR: Regular rate and rhythm ABDOMINAL: Soft, diffuse tenderness throughout lower abdomen, nondistended. Normoactive BS. PELVIC: Normal external genitalia. Moderate dark red vaginal bleeding. Several clots present in vaginal vault. Small clot coming through cervical os which appears slightly dilated. Mild cervical tenderness. No evidence of hemorrhage or pooling of fluid. MUSCULOSKELETAL: Moves all extremities. No gross deformities. SKIN: Warm, dry, normal color. NEURO: A&O X3. Speech clear PSYCHIATRIC: Mildly anxious appearing. Normal interaction. Course Vital Signs Vital signs: Vital Signs Temperature 97.0 F L 07/22/24 10:45 Pulse Rate 83 07/22/24 10:45 Respiratory Rate 20 07/22/24 10:45 Blood Pressure 136/91 H 07/22/24 10:45 Pulse Oximetry 100 07/22/24 10:45 Temperature 97.0 F L 07/22/24 10:45 Pulse Rate 83 07/22/24 10:45 Respiratory Rate 20 07/22/24 10:45 Blood Pressure 136/91 H 07/22/24 10:45 Pulse Oximetry 100 07/22/24 10:45 MDM - OB/Uterine Contractions MDM Narrative Medical decision making narrative: Patient presented to ED with vaginal bleeding, seen in the ED yesterday, reporting heavier bleeding today with clots. Vital signs are stable upon arrival. No evidence of hemodynamic instability. Hemoglobin today very slightly decreased yesterday, 11.6 today compared to 12 yesterday. Patient's blood type is O positive, no indication for RhoGAM. Beta-hCG yesterday 9352. Unfortunately today beta hCG is down trending to 8600. Discussed this with patient. Advised this is consistent with spontaneous miscarriage. Ultrasound yesterday did show moderate sub gestational hematoma, however with down trending hCG and worsening bleeding today with clots, concerning for miscarriage versus hematoma bleeding. Do not feel repeat ultrasound is necessary today. I did perform pelvic exam, which showed moderate amount of bleeding. She did have a small clot coming from her cervical os which I utilized ring forceps to gently assist out. Will discuss with OBGYN for follow-up. Discussed case with Dr. Trevizo, OBGYN, advised to have repeat beta-hCG on Saturday, follow-up in office. Call office to make appointment. Discussed these recommendations with patient. She is in agreement plan. Discussed very strict return precautions should bleeding worsen or continue, feeling dizzy or faint, or severe pain. Patient voiced understanding of return precautions. She feels comfortable going home. Discharged in stable condition. Medical Records Attestation: I reviewed the patient's medical records. Lab Data Attestation: I reviewed the patient's lab results. 07/22/24 11:47 Labs: Lab Results 07/22/24 Range/Units 11:47 WBC 9.0 (4.5-10.0) K/mm3 RBC 4.31 (4.2-5.4) M/mm3 Hgb 11.6 L (12.0-15.0) g/dL Hct 37.3 (37.0-47.0) % MCV 86.5 (80-100) fl MCH 26.9 (26-34) pg MCHC 31.1 L (32-36) g/dl RDW 13.2 (11.5-14.5) % Plt Count 342 (150-375) k/mm3 MPV 10.9 H (7.4-10.4) fl Immature Gran % (Auto) 0.3 (0-0.5) % Neut % (Auto) 58.4 (45.5-73.1) % Lymph % (Auto) 33.1 (18.3-44.2) % [place] % (Auto) 5.7 (2.6-8.5) % Eos % (Auto) 1.9 (0-4.4) % Baso % (Auto) 0.6 (0.2-1.2) % Lymph # (Auto) 2.98 (0.9-3.2) K/mm3 [place] # (Auto) 0.5 (0.1-0.6) K/mm3 Eos # (Auto) 0.2 (0-0.3) K/mm3 Baso # (Auto) 0.1 (0.0-0.1) K/mm3 Abs Immat Gran (auto) 0.03 (0.00-0.031) K/mm3 Absolute Neuts (auto) 5.3 (1.3-6.7) K/mm3 Absolute Nucleated RBC 0.000 (0.0-0.012) K/mm3 Nucleated RBC % 0.0 (0.0-0.2) % Beta HCG, Quant 8669.00 mIU/ML Discharge Plan Discharge Clinical Impression: Spontaneous Patient Disposition: Home, Self-Care Condition: Stable Instructions: Antibiotic Form, Miscarriage (ED) Additional Instructions: Your workup here today was unfortunately consistent with spontaneous miscarriage. Obtain repeat hormone level on Saturday. Take lab order sheet with you to outpatient lab at front of the hospital. Contact OBGYN office today to make follow-up appointment for further evaluation. Continue to monitor bleeding. You may continue Tylenol and ibuprofen as needed for pain. You may use heating pad as needed for pain. Return to the ED if you experience worsening or severe pain, severe bleeding, feeling dizzy or lightheaded, unable to keep down food or drink, fevers, or any other symptoms of concern. Patient Language: Peruvian Prescriptions: No Action sulfamethoxazole-trimethoprim 800-160 mg tablet 1 tablet PO Q12H 7 Days Qty: 14 0RF Other Ambulatory Orders: Beta HCG Quantitative (Routine) Timeframe: 20240724 Location: Determined by Patient Ordered By: Miriam Welsh Follow-up/Referrals: UNKNOWN,DOCTOR [Primary Care Provider] - Kelechi Trevizo MD [Physician] - (OBGYN) Time of Disposition: 14:41
--- OUTSIDE RECORDS SUMMARY | 2024-07-22 13:26 | XMS_ITS | Clinical Summary ---
Author Organization [facility] Address [address] [place] [id number] Care Team Providers Care Tear Down Worker Name Role Phone No, Physician Primary Care Provider [phone] Allergies No known active allergies Medications nitrofurantoin [...] to complete this topic Insurance Care Teams Tear Down Worker Relationship Specialty Start Date End Date No, Physician PCP - General 09/28/23
--- OUTSIDE RECORDS SUMMARY | 2024-07-22 13:26 | XMS_ITS | Referral Summary ---
Author Organization [facility] Address [address] [place] [id number] Care Team Providers Care Polysom Tech Name Role Phone No, Physician Primary Care Provider [phone] Allergies No known active allergies Medications nitrofurantoin [...] Plan of Treatment Not on file Insurance [address] Care Teams Polysom Tech Relationship Specialty Start Date End Date No, Physician PCP - General 09/28/23
[2024-07-22] MEDS: HYDROcodone/acetaminophen (*CRX) 5-325 MG TABLET 1 TAB PO (13:34)
[2024-07-22 14:56] VITALS: BP 102/81; PULSE 81; RESP 16; O2SAT 99
== END 2024-07-22 14:59 | disposition home or self-care (01) ==
PROVIDERS: Emergency Provider Physician Assistant
DX: O03.9 Complete or unspecified spontaneous abortion without complication (principal)
CPT/HCPCS: 36415; 84702; 85025; 99284; A9270